=== PATIENT | male | born 1965 | race Caucasian/White ===

== ENCOUNTER 2016-08-27 07:52 | Emergency (ER) | payer OTHER ==
[~2016-08-27] VITALS: Ht 181.6 cm; Wt 81.6 kg
[2016-08-27 07:55] VITALS: BP 136/89
--- NOTE | 2016-08-27 08:10 | ED UPPER/LOWER EXTREMITY COMPL ---
History of Present Illness General Chief Complaint: Fall Stated Complaint: FALL; HAND PAIN Source: patient Exam Limitations: no limitations Vital Signs & Intake/Output Vital Signs & Intake/Output Vital Signs Date Time Temp Pulse Resp B/P Pulse O2 O2 Flow FiO2 Ox Delivery Rate 08/27 0755 96.6 69 20 136/89 95 Room Air Allergies Coded Allergies: No Known Allergies (08/27/16) Reconcile Medications Fluoxetine HCl 10 MG CAPSULE 1 CAP PO DAILY MENTAL HEALTH (Reported) Simvastatin (Simvastatin*) 20 MG TABLET 1 TAB PO QPM CHOLESTEROL (Reported) Triage Note: TRIAGE: PT TO ER C/C PAIN TO RT HAND "ONLY IF I MOVE IT" S/P FALL YESTERDAY AFTERNOON. HAS ICED THE AREA INTERMITTENTLY BUT HAS NOT TRIED ANY OTC PAIN RELIEVERS. PREFERS TO WAIT FOR EVAL FOR ANY PAIN MEDICATIONS. Triage Nurses Notes Reviewed? yes Onset: Abrupt Duration: day(s): (1) Timing: no prior history Severity: moderate Severity Numbers: 6 Pain/Injury Location: Right: Wrist, Hand. Method of Injury: fall Modifying Factors: Improves With: immobilization. Worsens With: movement. HPI: Patient is a 51-year-old male presenting to the emergency department with chief complaint of right hand, right wrist pain after tripping and falling on ice yesterday afternoon. Denies any head injury or loss of consciousness. Pain over the hand is achy throbbing worse with range of motion and palpation. Has been using [id number] Tylenol with little to no relief. Denies numbness or tingling. Denies history of injury. Denies any other pain or complaints. (ANSELMO SHER) Past History Travel History Traveled to [place] past 21 day No Medical History Any Pertinent Medical History? 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 No (ANSELMO SHER) Review of Systems Review of Systems Constitutional: Reports: no symptoms. Comments Review of systems: See HPI, All other systems negative. Constitutional, no chills fever or weight loss HEENT: No visual changes no sore throat no congestion Cardiovascular: No chest pain Skin, no jaundice no rashes Respiratory: No dyspnea cough sputum or hemoptysis GI: No nausea no vomiting Muscle skeletal: no back pain, no neck pain, Neurologic: No numbness no confusion Psych: No stress anxiety Immunology: No splenectomy or history of AIDS (ALOK BRITO,ANSELMO) Physical Exam Physical Exam General Appearance: well developed/nourished, no apparent distress, alert, awake , comfortable Comments: Well-developed well-nourished person in no acute distress HEENT: Pupils equally round and reactive to light and accommodation. Nose is atraumatic. Neck: Normal inspection Back: Nontender Cardiovascular: normal JVP Respiratory: No respiratory distress. Extremity: Mild edema and ecchymosis noted of the dorsum of the right hand. Limited range of motion of right hand, right wrist secondary to pain. Full range of motion all digits on the right hand. No snuffbox tenderness on the right. Radial pulses are 2+ bilaterally. Capillary refills intact in upper extremities. Neuro: Alert oriented x3, motor sensory normal Skin: Mild ecchymosis and edema noted over the dorsum of the right hand, otherwise No appreciable rash on exposed skin, skin is warm and dry. Psych: Mood and affect is normal, memory and judgment is normal. (ALOK BRITO,ANSELMO) Progress Differential Diagnosis: contusion, dislocation, fracture, sprain, tendon injury Plan of Care: Orders Procedure Date/time Status XRY-WRIST COMPLETE-RIGHT 08/27 809 Active XRY-HAND, 3 View RIGHT 08/27 809 Active Diagnostic Imaging: Viewed by Me: Radiology Read. Discussed w/RAD: Radiology Read. Radiology Impression: PATIENT: ZACHARY PANDYA PRESENT AGE: 51 PATIENT ACCOUNT NO: [id number] : 65 LOCATION: [facility] ORDERING PHYSICIAN: ANSELMO BRITO SERVICE DATE: 08/27/16 EXAM TYPE: RAD - XRY-HAND, RIGHT; XRY-WRIST COMPLETE-RIGHT EXAMINATION: X-RAY RIGHT HAND AND RIGHT WRIST CLINICAL INFORMATION: Evaluate for fracture. Status post fall. COMPARISON: None. TECHNIQUE: 3 views of the right hand and 4 views of the right wrist FINDINGS: Normal bony mineralization. Ossific fragment noted dorsal to the carpal bones likely representing triquetral avulsion fracture. There is overlying soft tissue swelling. IMPRESSION: Triquetral avulsion suspected with dorsally displaced ossific fragment . Comments: Declines pain medication on arrival. Patient informed of x-ray results. Spoke with Dr. VILLAGRAN. Patient placed in volar splint and will follow-up with orthopedics. (ANSELMO SHER) Departure Departure Time of Disposition: 906 Disposition: HOME OR SELF CARE Condition: Stable Clinical Impression Primary Impression: Triquetral fracture Qualifiers: Encounter type: initial encounter Fracture type: closed Fracture alignment: nondisplaced Laterality: right Qualified Code: S62.114A - Nondisplaced fracture of triquetrum [cuneiform] bone, right wrist, initial encounter for closed fracture Referrals: EDWIN ZAVALA MD (PCP/Family) FELIX GARCIA MD Additional Instructions: Follow-up with your primary care physician as well as orthopedics, rest ice and elevate. Wear splint for support. Return for worsening symptoms or concerns. Use over the counter Motrin and Tylenol as directed. Departure Forms: Customer Survey General Discharge Information (ANSELMO SHER) PA/ENVIRONMENTAL SPECIALIST Co-Sign Statement Statement: ED Attending supervision documentation- [] I saw and evaluated the patient. I have also reviewed all the pertinent lab results and diagnostic results. I agree with the findings and the plan of care as documented in the PA's/ENVIRONMENTAL SPECIALIST's documentation. [X] I have reviewed the ED Record and agree with the PA's/ENVIRONMENTAL SPECIALIST's documentation. [] Additions or exceptions (if any) to the PAs/ENVIRONMENTAL SPECIALIST's note and plan are summarized below: [] (BRADLY PALMA,KERRI) Procedures Splinting Location: RIGHT HAND Manual Alignment Performed: No Hand-Made Type: orthoglass Splint: wrist Splint Applied By: splint applied by me Pre-Proc Neuro Vasc Exam: normal Post-Proc Neuro Vasc Exam: normal Progress: Patient tolerated procedure well. (ANSELMO SHER)
[2016-08-27] MEDS ORDERED: SIMVASTATIN20 M2 PO (08:31)
[2016-08-27] MEDS ORDERED: FLUOXETINE HCL10 M2 PO (08:31)
--- NOTE | 2016-08-27 08:54 | RADIOLOGY REPORT ---
EXAMINATION: X-RAY RIGHT HAND AND RIGHT WRIST CLINICAL INFORMATION: Evaluate for fracture. Status post fall. COMPARISON: None. TECHNIQUE: 3 views of the right hand and 4 views of the right wrist FINDINGS: Normal bony mineralization. Ossific fragment noted dorsal to the carpal bones likely representing triquetral avulsion fracture. There is overlying soft tissue swelling. IMPRESSION: Triquetral avulsion suspected with dorsally displaced ossific fragment .
== END 2016-08-27 09:53 ==
LOC: ERH 07:52
DX: S62.111A Displaced fracture of triquetrum [cuneiform] bone, right wrist, initial encounter for closed fracture (principal); W00.0XXA Fall on same level due to ice and snow, initial encounter
CPT/HCPCS: 73110-RT; 73130-RT